=== PATIENT | male | born 1980 | race Caucasian/White ===

== ENCOUNTER 2018-10-04 07:31 | Emergency (ER) | payer BC ==
[~2018-10-04] VITALS: Ht 182.9 cm; Wt 102.1 kg
[~2018-10-04 07:31] MED LIST: ADAL40PEN SC; AZAT50 PO; Cipro500 MG PO; DOCU100 PO; FERR325 PO; HYDR1TAB94 PO; Lialda1.2 GM PO; MESALAMINE; METR500 PO; MULVITMIND PO; Mesalamine4 GM/60 ML RC; ONDA8ODT MM; OXYACE5T PO; PHENERGAN25 MG PO; PRED10 PO; PRED20 PO; Prednisone20 MG PO; Zofran Odt4 MG SL
[2018-10-04] MEDS ORDERED: OMEPRAZOLE MAGN20 MG PO (07:49)
== END 2018-10-04 11:37 | disposition home or self-care (01) ==
LOC: ER 07:31
DX: D64.9 Anemia, unspecified (principal); K51.90 Ulcerative colitis, unspecified, without complications
CPT/HCPCS: 36430; 86850; 86900; 86901; 86923; 99283-25; J7030; P9016

== ENCOUNTER 2022-04-12 05:59 | Inpatient (IN) | payer BC ==
[~2022-04-12] VITALS: Ht 182.9 cm; Wt 92.3 kg
[~2022-04-12 05:59] MED LIST changes: +OMEPRAZOLE MAGN20 MG PO
[2022-04-12 07:52] LABS: BASOPHILS ABSOLUTE AUTO 0.05 K/mm3 (0.00-0.23); BASOPHILS PERCENT AUTO 1 % (0-2); EOSINOPHILS ABSOLUTE AUTO 0.22 K/mm3 (0.00-0.68); EOSINOPHILS PERCENT AUTO 2 % (0-6); Hemoglobin 8.8 g/dL (13.5-17.5); IMMATURE GRAN ABSOLUTE AUTO 0.06 K/mm3 (0.00-0.10); IMMATURE GRAN PERCENT AUTO 1 % (0-1); LYMPHOCYTES PERCENT AUTO 16 % (21-46); MONOCYTES ABSOLUTE AUTO 0.88 K/mm3 (0.16-1.47); MONOCYTES PERCENT AUTO 10 % (4-13); Mean Corpuscular HGB 27.8 pg (26.0-34.0); Mean Corpuscular HGB Conc 32.6 g/dL (31.5-36.5); Mean Corpuscular Volume 85 fL (80-100); Mean Platelet Volume 9.5 fL (9.1-12.4); NEUTROPHILS ABSOLUTE AUTO 6.51 K/mm3 (1.96-9.15); NEUTROPHILS PERCENT AUTO 71 % (41-73); NRBC ABSOLUTE 0.03 K/mm3 (0.00-0.02); NRBC Auto 0.3 /100 WBC (0.0-0.2); Platelet Count 503 K/mm3 (150-400); RDW Coefficient Variation 14.5 % (11.7-14.2); RDW Standard Deviation 44.7 fL (35.1-46.3); Red Blood Cell Count 3.17 M/mm3 (4.30-5.90); White Blood Cell Count 9.22 K/mm3 (4.00-11.30)
[2022-04-12 08:15] LABS: Magnesium, Blood 1.9 mg/dL (1.6-2.4)
[2022-04-12 08:23] LABS: Alanine Aminotransfer (ALT/SGP 22 U/L (12-78); Albumin, Blood 2.1 g/dL (3.4-5.0); Albumin/Globulin Ratio 0.5 (0.8-1.8); Alk Phos 73 U/L (50-136); Anion Gap 9 mmol/L (6-16); Aspartate Aminotrans (AST/SGOT 14 U/L (12-37); Bilirubin, Direct <0.1 mg/dL (0.0-0.3); Bilirubin, Indirect Unable to Calculate mg/dL (0.1-0.7); Bilirubin, Total 0.5 mg/dL (0.1-1.0); Blood Urea Nitrogen 11 mg/dL (8-24); Bun/Creatinine Ratio 9.6 (12.0-20.0); CO2, Blood 25 mmol/L (21-32); Calcium, Blood 8.6 mg/dL (8.5-10.1); Chloride, Blood 100 mmol/L (98-108); Creatinine, Blood 1.15 mg/dL (0.60-1.20); Globulin, Blood 3.9 g/dL (2.2-4.0); Glomerular Filtration Rate 81 (60-); Glucose, Blood 132 mg/dL (70-99); Potassium, Blood 3.9 mmol/L (3.5-5.5); Sodium, Blood 134 mmol/L (136-145)
[2022-04-12 09:00] LABS: International Normalized Ratio 1.08; Prothrombin Time Results 11.3 Sec (9.7-11.5)
[2022-04-12 09:02] LABS: Influenza A, PCR NEGATIVE (NEGATIVE); Influenza B, PCR NEGATIVE (NEGATIVE); Resp Syncytial Virus, PCR NEGATIVE (NEGATIVE); SARS-Cov-2 (COVID-19) PCR, MMC NEGATIVE (NEGATIVE)
[2022-04-12 10:48] LABS: Source, Urine Clean Catch
[2022-04-12 10:56] LABS: Appearance, Urine Clear (Clear); Bilirubin, Urine Neg (Neg); Blood, Urine Neg (Neg); Color, Urine Yellow (P-Yellow); Glucose Qualitative, Urine Neg (Neg); Ketones, Urine Neg (Neg); Leukocyte Esterase, Urine Neg (Neg); Nitrite, Urine Neg (Neg); Protein, Urine Neg (Neg); Specific Gravity, Urine 1.005 (1.003-1.022); Urobilinogen, Urine NORM (Normal)
[2022-04-12] MEDS ORDERED: MESALAMINE PO (14:46)
--- NOTE | 2022-04-12 14:51 | NUR ---
PT ADMITTED TO ROOM 356 AT 1325. PT A/O X 4 STEADY GAIT ON ADMIT. PT REPORTED PAIN IN ABD 10 AND STATED FENTANYL GIVEN EARLIER ONLY CONTROLLED PAIN FOR ABOUT TEN MINUTES. PT REPORTED MORPHINE CONTROLLED PAIN MUCH BETTER. DR. DAVIS NOTIFIED BY CELL PHONE AND LEFT MESSAGE. PT ORIENTED TO ROOM, CALL LIGHT AND FALL PRECAUTIONS. ADVISED WE NEEDED A STOOL SAMPLE AND HAT PLACED IN TOILET. PLACED SCD'S ON PATIENT AND STARTED IV FLUIDS NS AT 150/HR PER ORDER. PT GIVEN ICE WATER AND JELLO.
--- NOTE | 2022-04-12 19:16 | NUR ---
SHIFT SUMMARY: PT A/O X 4 IND IN ROOM, PLEASANT AND COOPERATIVE WITH CARE. PT ABD PAIN MANAGED WITH MORPHINE 4 MG Q4. PT DID C/O INCREASED CRAMPING IN ABD POST FULL LIQUID DINNER. PT HAS NS RUNNING AT 150/HR AT THIS TIME. FAMILY IN WITH PT AND PAIN TOLERABLE POST MORPHINE ADMINISTRATION.
[2022-04-12 19:39] LABS: Adenovirus F 40/41 Not Detected (NOT DETECT); Astrovirus Not Detected (NOT DETECT); Campylobacter Sp Not Detected (NOT DETECT); Cryptosporidium Not Detected (NOT DETECT); Cyclospora Cayetanensis Not Detected (NOT DETECT); E. Coli O157 Not Detected (NOT DETECT); Entamoeba Histolytica Not Detected (NOT DETECT); Enteroaggregative E. coli-EAEC Not Detected (NOT DETECT); Enteropathogenic E. coli-EPEC Not Detected (NOT DETECT); Enterotoxigenic E. coli-ETEC Not Detected (NOT DETECT); Giardia Lamblia Not Detected (NOT DETECT); Norovirus GI/GII Not Detected (NOT DETECT); Plesiomonas Shigelloides Not Detected (NOT DETECT); Rotavirus A Not Detected (NOT DETECT); Salmonella Sp Not Detected (NOT DETECT); Sapovirus Not Detected (NOT DETECT); Shiga Toxin-prod E. coli-STEC Not Detected (NOT DETECT); Shigella/Enteroin E. coli-EIEC Not Detected (NOT DETECT); Vibrio Cholerae Not Detected (NOT DETECT); Vibrio Sp Not Detected (NOT DETECT); Yersinia Enterocolitica Not Detected (NOT DETECT)
--- NOTE | 2022-04-13 04:59 | NUR ---
SHIFT SUMMARY 42 YR M ADMITTED ON 04/12/22 FOR ULCERATIVE COLITIS. FULL CODE. PT C/O PAIN NOT BEING CONTROLLED W/ MORPHINE. STATES THAT AFTER 2 HOURS HIS PAIN IS A 10 AGAIN. PERHAPS EDUCATION ON HOW TO USE THE PAIN SCALE IS IN ORDER. SPOKE W/ HOSPITALIST AND PAIN MGMT WAS CHANGED TO FENTYNL AND OXYCODONE Q4. PT STILL C/O OF HIGH PAIN LEVEL (10) AFTER 3 HOURS.
[2022-04-13 05:06] LABS: Hematocrit 22.3 % (37.0-53.0); Mean Corpuscular HGB 27.3 pg (26.0-34.0); Mean Corpuscular HGB Conc 31.4 g/dL (31.5-36.5); Mean Corpuscular Volume 87 fL (80-100); Mean Platelet Volume 9.4 fL (9.1-12.4); NRBC ABSOLUTE 0.02 K/mm3 (0.00-0.02); NRBC Auto 0.3 /100 WBC (0.0-0.2); Platelet Count 428 K/mm3 (150-400); RDW Coefficient Variation 14.3 % (11.7-14.2); RDW Standard Deviation 45.5 fL (35.1-46.3); Red Blood Cell Count 2.56 M/mm3 (4.30-5.90); White Blood Cell Count 6.69 K/mm3 (4.00-11.30)
[2022-04-13 05:46] LABS: Bun/Creatinine Ratio 11.1 (12.0-20.0); Creatinine, Blood 0.9 mg/dL (0.60-1.20); Magnesium, Blood 2.1 mg/dL (1.6-2.4)
[2022-04-13 13:34] LABS: Hematocrit 25.9 % (37.0-53.0); Hemoglobin 7.9 g/dL (13.5-17.5)
--- NOTE | 2022-04-13 16:39 | NUR ---
PT REPORTED DILAUDID WAS NOT EFFECTIVE IN TREATING PAIN WHEN HE RECIEVED IT. HE REPORTED IT WORKED FOR ABOUT 15 MINUTES, HE FELT "ANGRY" AFTER GETTING IT. DR. WALKER NOTIFIED DILAUDID WAS NOT EFFECTIVE AND SHE CHANGED ORDER TO OXYCODONE 10 MG Q4 PRN. ORDER PROCESSED.
--- NOTE | 2022-04-13 20:00 | NUR ---
ASSUMED CARE. AOX3, INDEPENDENT, ABLE TO MAKE NEEDS KNOWN. DENIES NAUSEA AT THIS TIME, STATES IT TENDS TO GET BAD AT NIGHT. PAIN CURRENTLY 6 AND CLIMBING. MEDICATED FOR PAIN EARLY TO STAY ON TOP OF IT. DISCUSSED PLAN TO KEEP PAIN MANAGED. ABLE TO TOLERATE SMALL MEALS, BITES AT A TIME, HE IS GOOD AT FOLLOWING DIRECTIONS. VS WNL. DENIES ANY OTHER NEEDS AT THIS TIME. WILL CONTINUE TO MONITOR.
--- NOTE | 2022-04-13 22:00 | NUR ---
PAIN STILL 12/22 DISPITE MEDICATION. NO NAUSEA AT THIS TIME. MEDICATED WITH ROXICODONE. INSTRUCTED TO CALL IF PAIN IS UN-RELEIVED OR BECOMES INTOLERATBLE. CALL LIGHT IN REACH.
[2022-04-14 04:37] LABS: Hematocrit 21.9 % (37.0-53.0); Hemoglobin 6.8 g/dL (13.5-17.5); Mean Corpuscular HGB 27.2 pg (26.0-34.0); Mean Corpuscular HGB Conc 31.1 g/dL (31.5-36.5); Mean Corpuscular Volume 88 fL (80-100); Mean Platelet Volume 9.6 fL (9.1-12.4); NRBC ABSOLUTE 0.03 K/mm3 (0.00-0.02); NRBC Auto 0.5 /100 WBC (0.0-0.2); Platelet Count 403 K/mm3 (150-400); RDW Coefficient Variation 14.3 % (11.7-14.2); RDW Standard Deviation 46.2 fL (35.1-46.3); White Blood Cell Count 5.94 K/mm3 (4.00-11.30)
[2022-04-14 05:00] LABS: Albumin, Blood 1.9 g/dL (3.4-5.0); Albumin/Globulin Ratio 0.6 (0.8-1.8); Bilirubin, Total 0.3 mg/dL (0.1-1.0); Bun/Creatinine Ratio 10.3 (12.0-20.0); Calcium, Blood 7.8 mg/dL (8.5-10.1); Creatinine, Blood 0.87 mg/dL (0.60-1.20); Globulin, Blood 3.3 g/dL (2.2-4.0); Potassium, Blood 4.3 mmol/L (3.5-5.5); Total Protein, Blood 5.2 g/dL (6.4-8.2)
[2022-04-14 05:26] LABS: BAND PERCENT MAN 17 % (0-8); BASOPHILS PERCENT MAN 0 % (0-2); EOSINOPHILS PERCENT MAN 0 % (0-6); LYMPHOCYTES ABSOLUTE MAN 0.29 K/mm3 (0.84-5.20); LYMPHOCYTES PERCENT MAN 5 % (21-46); MONOCYTES ABSOLUTE MAN 0.29 K/mm3 (0.16-1.47); MONOCYTES PERCENT MAN 5 % (4-13); NEUTROPHILS ABSOLUTE MAN 5.34 K/mm3 (1.96-9.15); SEG NEUTROPHILS PERCENT MAN 73 % (41-73); TOTAL CELLS COUNTED 100
--- NOTE | 2022-04-14 07:39 | NUR ---
SHIFT SUMMARY: PAIN HAS BEEN CONSISTENT T/O NIGHT WITH NEED FOR EVERY 4 HOUR PAIN MEDS. THIS HELPED HIM TO SLEEP SOME HE SAID. NO NAUSEA THIS SHIFT PAIN WAS BETTER CONTROLLED. HE HAD 2 BLOODY STOOLS LAST NIGHT. HGB LOW THIS AM AT 6,8, CALLED INTO DR. GANDARA, 1 UNIT PRBC ORDERED. PATIENT IS NOT SURE HE WANTS TO BE INFUSED, HE THINKS HIS LEVELS WILL GO UP, EDUCATED HIM ON BLOOD LOSS. NPO SINCE MIDNIGHT FOR PROCEDURE.
--- NOTE | 2022-04-14 12:55 | NUR ---
04/14/22 1255 Belinda Garcia HISTORY, CHART, MEDICATIONS AND ALLERGIES REVIEWED BEFORE START OF PROCEDURE. PATIENT CONFIRMS NPO STATUS AND AGREES WITH SCHEDULED PROCEDURE. 3-LEAD EKG REVIEWED WITH PHYSICIAN PRIOR TO START OF PROCEDURE. MONITOR INTACT WITH CONTINUOUS PULSE OXIMETRY,CAPNOGRAPHY, 3-LEAD EKG, INTERMITTENT BP. SUPPLEMENTAL O2 TO BE TITRATED THROUGHOUT PROCEDURE TO MAINTAIN O2 SATURATION ABOVE 90%. PATIENT DETERMINED TO BE ASA APPROPRIATE FOR PROPOFOL SEDATION PRIOR TO START OF PROCEDURE BY DR. APONTE.
--- NOTE | 2022-04-14 13:04 | NUR ---
brought to [facility] from medical floor. vss awake cooperative npo since midnight. no implants
--- NOTE | 2022-04-14 15:33 | NUR ---
SHIFT SUMMARY PT SITTING UP IN BED, WATCHING TV DURING SHIFT REPORT. PT IS A&O, PLEASANT AND CO-OP. WAS NPO WAITING FOR SIGMOID SCOPE TODAY, WANTING TO EAT AND DRINK. NRS FINANCIAL COMPLIANCE MANAGER NOTIFIED FOR TIME; UPDATE GIVEN TO PT. IV ABX GIVEN PER EMAR. 1 UNIT PRBC'S TRANSFUSED PER ORDERS. PT AGREEABLE TO BLOOD TX AND TOLERATED WELL. DAY SX TO RM TRANSFUSION COMPLETING. PT TAKEN DOWN FOR SCOPE; TOLERATED WELL. REPORT GIVEN AT BS. PT ABLE TO TX SELF BACK TO BED. PT CLEARED FOR DIET AND TOLERATED WELL. PER JOHN RN, DR FAY MYRICK'D DIET TO BE ADVANCED TOLERATED. PT'S IN TO VISIT THIS AFTERNOON. PT REPORTED 2 BM'S TO PRESENT THIS SHIFT; ONLY 2 SM DROPS OF BLOOD IN ONE, AND NO BLOOD IN OTHER; MOSTLY BILE COLORED PER PT. MEDICATED PER EMAR FOR C/O ABD PAIN. DENIED FURTHER NEEDS. CALL LT IN REACH.
[2022-04-15 04:50] LABS: BASOPHILS PERCENT AUTO 0 % (0-2); Hematocrit 25.1 % (37.0-53.0); Hemoglobin 7.9 g/dL (13.5-17.5); LYMPHOCYTES ABSOLUTE AUTO 0.69 K/mm3 (0.84-5.20); LYMPHOCYTES PERCENT AUTO 9 % (21-46); MONOCYTES ABSOLUTE AUTO 0.65 K/mm3 (0.16-1.47); MONOCYTES PERCENT AUTO 8 % (4-13); Mean Corpuscular HGB 27.3 pg (26.0-34.0); Mean Corpuscular HGB Conc 31.5 g/dL (31.5-36.5); Mean Corpuscular Volume 87 fL (80-100); Mean Platelet Volume 9.6 fL (9.1-12.4); NRBC ABSOLUTE 0.05 K/mm3 (0.00-0.02); NRBC Auto 0.6 /100 WBC (0.0-0.2); Platelet Count 441 K/mm3 (150-400); RDW Coefficient Variation 14.6 % (11.7-14.2); Red Blood Cell Count 2.89 M/mm3 (4.30-5.90); White Blood Cell Count 8.02 K/mm3 (4.00-11.30)
[2022-04-15 04:58] LABS: EOSINOPHILS PERCENT AUTO 0 % (0-6); IMMATURE GRAN ABSOLUTE AUTO 0.06 K/mm3 (0.00-0.10); IMMATURE GRAN PERCENT AUTO 1 % (0-1); NEUTROPHILS ABSOLUTE AUTO 6.62 K/mm3 (1.96-9.15); NEUTROPHILS PERCENT AUTO 83 % (41-73)
[2022-04-15 05:19] LABS: Bun/Creatinine Ratio 16.9 (12.0-20.0); Calcium, Blood 8.1 mg/dL (8.5-10.1); Creatinine, Blood 0.89 mg/dL (0.60-1.20); Potassium, Blood 4.1 mmol/L (3.5-5.5)
--- NOTE | 2022-04-15 06:37 | NUR ---
NOC SHIFT SUMMARY PT ADMITTED WITH ABDOMINAL PAIN. HX OF ULCERATIVE COLLITIS. EGD 04/14 WITH BIOPSIES SENT FOR PATHOLOGY. IVF INFUSING AT 100 mL/HR. IV ABX INTERCHANGED THROUGHOUT SHIFT. PAIN MEDICATION AROUND THE CLOCK. PT VERY PLEASANT; APPRECIATIVE OF ALL CARE PROVIDED. NO ISSUES OVERNIGHT.
--- NOTE | 2022-04-15 16:16 | NUR ---
SHIFT SUMMARY PT AWAKE AT START OF SHIFT, WATCHING TV BEFORE BREAKFAST. UP TO BTHRM INDEPENDENTLY NEEDED. PT REPORTED FEELING MUCH BETTER TODAY. ONLY TWO BM'S DURING THE NIGHT WITH SOFT FORMED BROWN STOOL. PT REPORTED IMPROVEMENT. 2ND STOOL WITH "A COUPLE SPOTS" OF VEENA "RED BLOOD ON STOOL". PT REPORTED PAIN IMPROVED WELL AND APPETITE IS VERY GOOD. PT REQUESTED A DOUBLE BREAKFAST AND EXTRA PORTIONS FOR OTHER MEALS, EATING ALL OF IT. DR GRANDA IN TO SEE PT THIS AM, DISCUSSED PLAN OF CARE. IVF'S STOPPED AND IV SOLUMEDROL CHANGED TO PO PREDNISONE. PT TO D/C TO HOME TOMORROW. PT'S MOM HERE TO VISIT AGAIN TODAY. DENIED FURTHER NEEDS. CALL LT IN REACH.
[2022-04-16 05:19] LABS: Hematocrit 28.3 % (37.0-53.0); Hemoglobin 8.6 g/dL (13.5-17.5); Mean Corpuscular HGB 26.5 pg (26.0-34.0); Mean Corpuscular HGB Conc 30.4 g/dL (31.5-36.5); Mean Corpuscular Volume 87 fL (80-100); Mean Platelet Volume 9.9 fL (9.1-12.4); NRBC ABSOLUTE 0.07 K/mm3 (0.00-0.02); Platelet Count 469 K/mm3 (150-400); RDW Coefficient Variation 14.6 % (11.7-14.2); RDW Standard Deviation 46.6 fL (35.1-46.3); Red Blood Cell Count 3.25 M/mm3 (4.30-5.90); White Blood Cell Count 6.77 K/mm3 (4.00-11.30)
[2022-04-16 05:43] LABS: Bun/Creatinine Ratio 16.2 (12.0-20.0); Calcium, Blood 8.3 mg/dL (8.5-10.1); Creatinine, Blood 0.87 mg/dL (0.60-1.20); Potassium, Blood 4.2 mmol/L (3.5-5.5)
[2022-04-16 05:51] LABS: BAND PERCENT MAN 6 % (0-8); BASOPHILS PERCENT MAN 0 % (0-2); EOSINOPHILS ABSOLUTE MAN 0.06 K/mm3 (0.00-0.68); EOSINOPHILS PERCENT MAN 1 % (0-6); LYMPHOCYTES ABSOLUTE MAN 0.74 K/mm3 (0.84-5.20); LYMPHOCYTES PERCENT MAN 11 % (21-46); MONOCYTES PERCENT MAN 6 % (4-13); NEUTROPHILS ABSOLUTE MAN 5.55 K/mm3 (1.96-9.15); SEG NEUTROPHILS PERCENT MAN 76 % (41-73); TOTAL CELLS COUNTED 100
--- NOTE | 2022-04-16 06:06 | NUR ---
NOC SHIFT SUMMARY PT BACK TO BASELINE HEALTH LEVEL, PER PT REPORT. PAIN IS WELL CONTROLLED. DIET ADVANCED TO REGULAR; TOLERATING WELL. PT IS HOPING TO D/C TODAY. PATIENT HAS A DOCUMENTED ALLERGY TO PENECILLIN. MD NOTE MENTIONS D/C ON PO AMOXACILLIN
[2022-04-16] MEDS ORDERED: ONDA4ODT MM (11:09)
[2022-04-16] MEDS ORDERED: PRED20 PO (11:13)
[2022-04-16] MEDS ORDERED: METR500 PO (11:14)
[2022-04-16] MEDS ORDERED: CIPRO500 M1 PO (11:14)
--- NOTE | 2022-04-16 11:54 | NUR ---
PATIENT A&OX4. AMBULATES IN ROOM INDEPENDENTLY. LUNGS CLEAR T/O. DNIES N/V. TOLERATED PO WELL. PATIENT RECIEVED SCHEDULED ANTIBIOTICS THIS AM. PATIENT DISCHARGE HOME. DISCHARGE INSTRUCTION PACKET GIVEN TO PATIENT. EDUCATE PATIENT REGARDING DX, S/S AND NEW PRESCRIBED MEDICATIONS. PATIENT STATED UNDERSTANDING AND NEW FURTHER QUESTIONS. IV DC'D. RX WAS FAXED TO PATIENT PREFERRED PHARMACY. ALL PATIENT PERSONAL BELONGINGS WERE SENT HOME WITH THE PATIENT. THIS RN OFFERED WHEELCHAIR, BUT PATIENT DECLINE AND REQUEST TO WALK OUT WITH MOM.
== END 2022-04-16 11:59 | disposition home or self-care (01) | DRG 386 ==
LOC: ER 05:59 → MEDS 10:49
PROVIDERS: Internal Medicine; Internal Medicine Gastroenterology; Nurse Practitioner Acute Care; Student in an Organized Health Care Education/Training Program; ADMIT Internal Medicine
PROC: 30233N1 Transfusion of Nonautologous Red Blood Cells into Peripheral Vein, Percutaneous Approach (ICD-10-PCS; 2022-04-14)
PROC: 0DBN8ZX Excision of Sigmoid Colon, Via Natural or Artificial Opening Endoscopic, Diagnostic (ICD-10-PCS; principal; 2022-04-14 13:30)
DX: K51.011 Ulcerative (chronic) pancolitis with rectal bleeding (principal); D62 Acute posthemorrhagic anemia; K61.1 Rectal abscess; E87.20 Acidosis, unspecified; E87.1 Hypo-osmolality and hyponatremia; Z20.822 Contact with and (suspected) exposure to COVID-19; E86.0 Dehydration; K21.9 Gastro-esophageal reflux disease without esophagitis; D35.01 Benign neoplasm of right adrenal gland; R73.9 Hyperglycemia, unspecified; K64.8 Other hemorrhoids; E88.09 Other disorders of plasma-protein metabolism, not elsewhere classified; D63.8 Anemia in other chronic diseases classified elsewhere; Z88.0 Allergy status to penicillin; Z79.899 Other long term (current) drug therapy; Z79.52 Long term (current) use of systemic steroids
CPT/HCPCS: 0241U; 36415; 36430; 74177; 80048; 80053; 80076; 81003; 83605; 83690; 83735; 85014; 85018; 85025; 85027; 85610; 85651; 85730; 86140; 86850; 86900; 86901; 86923; 87507; 88305; 96365; 96366; 96375; 99285-25; A9270; J0744; J2270; J2405; J2704; J2920; J2930; J3010; J7030; J7120; J7512; P9016; Q9967

== ENCOUNTER 2022-04-25 06:13 | Emergency (ER) | payer BC ==
[~2022-04-25] VITALS: Ht 182.9 cm; Wt 89.4 kg
[~2022-04-25 06:13] MED LIST changes: +CIPRO500 M1 PO; +MESALAMINE PO; +ONDA4ODT MM
[2022-04-25 07:53] LABS: Albumin, Blood 1.8 g/dL (3.4-5.0); Albumin/Globulin Ratio 0.5 (0.8-1.8); Bilirubin, Total 0.1 mg/dL (0.1-1.0); Bun/Creatinine Ratio 22.5 (12.0-20.0); Calcium, Blood 7.8 mg/dL (8.5-10.1); Creatinine, Blood 0.71 mg/dL (0.60-1.20); Globulin, Blood 3.3 g/dL (2.2-4.0); Magnesium, Blood 1.8 mg/dL (1.6-2.4); Potassium, Blood 3.9 mmol/L (3.5-5.5); Total Protein, Blood 5.1 g/dL (6.4-8.2)
[2022-04-25 07:57] LABS: BASOPHILS ABSOLUTE AUTO 0.03 K/mm3 (0.00-0.23); BASOPHILS PERCENT AUTO 0 % (0-2); EOSINOPHILS ABSOLUTE AUTO 0.25 K/mm3 (0.00-0.68); EOSINOPHILS PERCENT AUTO 2 % (0-6); Hematocrit 21.5 % (37.0-53.0); Hemoglobin 6.7 g/dL (13.5-17.5); IMMATURE GRAN ABSOLUTE AUTO 0.14 K/mm3 (0.00-0.10); IMMATURE GRAN PERCENT AUTO 1 % (0-1); LYMPHOCYTES ABSOLUTE AUTO 1.38 K/mm3 (0.84-5.20); LYMPHOCYTES PERCENT AUTO 10 % (21-46); MONOCYTES PERCENT AUTO 5 % (4-13); Mean Corpuscular HGB Conc 31.2 g/dL (31.5-36.5); Mean Corpuscular Volume 83 fL (80-100); Mean Platelet Volume 10.2 fL (9.1-12.4); NEUTROPHILS ABSOLUTE AUTO 11.29 K/mm3 (1.96-9.15); NEUTROPHILS PERCENT AUTO 82 % (41-73); NRBC ABSOLUTE 0.03 K/mm3 (0.00-0.02); NRBC Auto 0.2 /100 WBC (0.0-0.2); Platelet Count 375 K/mm3 (150-400); RDW Coefficient Variation 16.5 % (11.7-14.2); RDW Standard Deviation 50.2 fL (35.1-46.3); Red Blood Cell Count 2.58 M/mm3 (4.30-5.90); White Blood Cell Count 13.79 K/mm3 (4.00-11.30)
[2022-04-25] MEDS ORDERED: CIPR500 PO (10:58)
[2022-04-25] MEDS ORDERED: METR500 PO (10:58)
[2022-04-25 13:30] LABS: Hematocrit 23.4 % (37.0-53.0); Hemoglobin 7.4 g/dL (13.5-17.5); Mean Corpuscular HGB 26.4 pg (26.0-34.0); Mean Corpuscular HGB Conc 31.6 g/dL (31.5-36.5); Mean Corpuscular Volume 84 fL (80-100); Mean Platelet Volume 10.4 fL (9.1-12.4); NRBC ABSOLUTE 0.02 K/mm3 (0.00-0.02); NRBC Auto 0.2 /100 WBC (0.0-0.2); Platelet Count 236 K/mm3 (150-400); RDW Coefficient Variation 16.1 % (11.7-14.2); RDW Standard Deviation 48.7 fL (35.1-46.3)
== END 2022-04-25 18:49 | disposition home or self-care (01) ==
LOC: ER 06:13
PROVIDERS: Student in an Organized Health Care Education/Training Program
DX: K61.0 Anal abscess (principal); K51.90 Ulcerative colitis, unspecified, without complications; D64.9 Anemia, unspecified; I95.1 Orthostatic hypotension; Z88.0 Allergy status to penicillin; Z79.52 Long term (current) use of systemic steroids; Z79.899 Other long term (current) drug therapy
CPT/HCPCS: 36415; 36430; 46050; 72193; 80053; 83735; 85025; 85027; 86850; 86900; 86901; 86923; 96374-59; 96375-59; 96376-59; 99284-25; A9270; J1885; J2270; J7030; P9016; Q9967